=== PATIENT | male | born 1935 | race Caucasian/White ===

== ENCOUNTER 2017-05-07 14:50 | Inpatient (IN) | payer MEDICARE, OTHER ==
[~2017-05-07] VITALS: Ht 177.8 cm; Wt 80.3 kg
[~2017-05-07 14:50] MED LIST: ASPIR 8181 MG PO; ATORVASTATIN CA20 MG PO; CALCIUM 500+D1 EACH PO; CARVEDILOL12.5 MG PO; CENTRUM SILVER1 EAC3 PO; DIGOXIN250 MCG PO; ELIQUIS PO; LEVOTHYROXINE25 MCG PO; LISINOPRIL2.5 MG PO; VITAMIN D-32000 UNIT PO
[2017-05-07 16:33] LABS: BASOPHILS # (AUTO) 0.1 (0.0-0.1); BASOPHILS % 0.5 % (0.0-1.0); EOSINOPHILS # (AUTO) 0.4 (0.0-0.4); EOSINOPHILS % 4.1 % (0.0-6.0); HEMATOCRIT 41.8 % (38.2-49.6); HEMOGLOBIN 13.9 g/dL (14.0-18.0); LYMPHOCYTES # (AUTO) 3.4 (1.0-3.2); LYMPHOCYTES % 35.6 % (18.0-39.1); MEAN CORPUSCULAR HEMOGLOBIN 34.5 pg (28-32); MEAN CORPUSCULAR HGB CONC 33.3 g/dL (31-35); MEAN CORPUSCULAR VOLUME 103.7 fL (81-99); MONOCYTES # (AUTO) 1.3 (0.2-0.8); MONOCYTES % 13.2 % (4.4-11.3); NEUTROPHILS # (AUTO) 4.5 (2.1-6.9); NEUTROPHILS % 46.1 % (38.7-80.0); PLATELET COUNT 138 x10e3/uL (140-360); RED BLOOD COUNT 4.03 x10e6/uL (4.3-5.7); RED CELL DISTRIBUTION WIDTH 13.2 % (11.7-14.4)
[2017-05-07 16:35] LABS: BILIRUBIN,URINE NEGATIVE (NEGATIVE); COLOR,URINE YELLOW (YELLOW); KETONES,URINE NEGATIVE (NEGATIVE); LEUKOCYTE ESTERASE ,URINE NEGATIVE (NEGATIVE); NITRITE,URINE NEGATIVE (NEGATIVE); PROTEIN,URINE DIPSTICK NEGATIVE (NEGATIVE); URINE UROBILINOGEN 4 mg/dL (0.2 - 1)
[2017-05-07 16:37] LABS: CLARITY,URINE SL CLOUDY (CLEAR)
[2017-05-07 16:38] LABS: INR 1.73
[2017-05-07 16:39] LABS: PARTIAL THROMBOPLASTIN TIME 33.7 seconds (23.8-35.5)
[2017-05-07 16:45] LABS: ALANINE AMINOTRANSFERASE 29 IU/L (0-55); ALBUMIN 3.3 g/dL (3.5-5.0); ALBUMIN/GLOBULIN RATIO 0.9 (0.8-2.0); ALKALINE PHOSPHATASE 84 IU/L (40-150); ANION GAP 12.3 mmol/L (8-16); BLOOD UREA NITROGEN 20 mg/dL (7-26); BUN/CREATININE RATIO 19 (6-25); CALCIUM 9.5 mg/dL (8.4-10.2); CARBON DIOXIDE 30 mmol/L (22-29); CHLORIDE 99 mmol/L (98-107); CREATINE KINASE 44 IU/L (30-200); CREATININE, SERUM 1.07 mg/dL (0.72-1.25); EST GLOMERULAR FILTRATION RATE > 60 ML/MIN (60-); GLUCOSE 149 mg/dL (74-118); POTASSIUM 4.3 mmol/L (3.5-5.1); SODIUM 137 mmol/L (136-145)
[2017-05-07 16:49] LABS: EPITHELIAL CELLS,URINE RARE /LPF; RBC,URINE 0-5 /HPF (0-5); WBC,URINE (MAN) 0-5 /HPF (0-5)
[2017-05-07 16:53] LABS: MUCUS,URINE FEW (RARE)
--- NOTE | 2017-05-07 16:56 | Diagnostic Imaging Report ---
PROCEDURE: CHEST SINGLE (PORTABLE) COMPARISON: Patients [facility], DX, CHEST SINGLE (PORTABLE), 07/13/2014, 6:18. INDICATIONS: CONGESTION AND SHORTNESS OF BREATH FINDINGS: LUNGS: Diffuse hyperinflation suggestive of small airways disease. There is poor visualization of the lateral right diaphragm. Pulmonary vasculature is mildly prominent. PLEURA: Poor visualization of the right lateral costophrenic angle. Left lateral costophrenic angle is sharp. No pneumothorax. HEART \T\ MEDIASTINUM: Stable cardiomegaly. Multiple pacer/defibrillator wires are present. BONES \T\ SOFT TISSUES: No focal osseous lesion. Soft tissues are unremarkable. CONCLUSION: 1. Right basilar air space opacity could be due to pleural effusion and atelectasis or pneumonia. Recommend correlation with PA chest x-ray will clinically feasible. 2. Cardiomegaly and mild vascular congestion. Dictated by: Jose Alejandro Alvarez M.D. on 05/07/2017 at 16:57 Electronically approved by: Jose Alejandro Alvarez M.D. on 05/07/2017 at 16:57
[2017-05-07] MEDS ORDERED: ALBUTEROL/IPRATROPIUM 3 ML NEB NEB ONE (17:30)
[2017-05-07] MEDS ORDERED: FUROSEMIDE INJ 10 MG/ML 4 ML VIAL IV ONE (18:15)
--- OUTSIDE RECORDS SUMMARY | 2017-05-07 18:51 | XMS REPORT ---
Author Author [facility] Address Unknown Phone Unavailable Care Team Providers Care Instructional Support Specialist Name Role Phone SYLVIE GUALLPA Unavailable Unavailable Problems This patient has no known problems. Allergies, Adverse Reactions, Alerts This patient has no known allergies or adverse reactions. Medications This patient has no known medications. Results Test Description Test Time Test Comments Text Results Atomic Results Result Comments CHEST SINGLE (PORTABLE) [place] [address] Patient Name: MIGUEL STEPHEN JR MR #: [id number] : 1935 Age/Sex: 82/M Req #: [id number] Adm Physician: Ordered by: SYLVIE GUALLPA MD Report #: [id number] Location: ER Room/Bed: ___ Procedure: [id number] DX/CHEST SINGLE (PORTABLE) Exam Date: 05/07/17 Exam Time: 1630 REPORT STATUS: Signed PROCEDURE : CHEST SINGLE (PORTABLE) COMPARISON: [facility], DX, CHEST SINGLE (PORTABLE), 07/13/2014, 6:18. INDICATIONS: CONGESTION AND SHORTNESS OF BREATH FINDINGS: LUNGS: Diffuse hyperinflation suggestive of small airways disease. There is poor visualization of the lateral right diaphragm. Pulmonary vasculature is mildly prominent. PLEURA: Poor visualization of the right lateral costophrenic angle. Left lateral costophrenic angle is sharp. No pneumothorax. HEART T MEDIASTINUM: Stable cardiomegaly. Multiple pacer/defibrillator wires are present. BONES T SOFT TISSUES: No focal osseous lesion. Soft tissues are unremarkable. CONCLUSION: 1. Right basilar air space opacity could be due to pleural effusion and atelectasis or pneumonia. Recommend correlation with PA chest x-ray will clinically feasible. 2. Cardiomegaly and mild vascular congestion. Dictated by: Kristy Morley M.D. on 05/07/2017 at 16:57 Electronically approved by: Kristy Morley M.D. on 05/07/2017 at 16:57 Dictated By: KRISTY MORLEY MD 56 Transcribed By: ROSHAN on 05/07/171656 COPY TO: SYLVIE GUALLPA MD
[2017-05-07] MEDS ORDERED: KEPPRA500 MG PO (20:17)
[2017-05-08] VITALS (7 sets, daily range): BP systolic 98–143; BP diastolic 54–90
[2017-05-08 01:36] LABS: CREATINE KINASE MB 1.6 ng/mL (0-5.0)
[2017-05-08 06:31] LABS: BASOPHILS # (AUTO) 0.1 (0.0-0.1); BASOPHILS % 0.7 % (0.0-1.0); EOSINOPHILS # (AUTO) 0.5 (0.0-0.4); EOSINOPHILS % 4.6 % (0.0-6.0); HEMATOCRIT 38.9 % (38.2-49.6); HEMOGLOBIN 13.1 g/dL (14.0-18.0); LYMPHOCYTES # (AUTO) 3.8 (1.0-3.2); LYMPHOCYTES % 38.1 % (18.0-39.1); MEAN CORPUSCULAR HEMOGLOBIN 34.2 pg (28-32); MEAN CORPUSCULAR HGB CONC 33.7 g/dL (31-35); MEAN CORPUSCULAR VOLUME 101.6 fL (81-99); MONOCYTES # (AUTO) 1.1 (0.2-0.8); MONOCYTES % 11.3 % (4.4-11.3); NEUTROPHILS # (AUTO) 4.6 (2.1-6.9); NEUTROPHILS % 45.1 % (38.7-80.0); PLATELET COUNT 131 x10e3/uL (140-360); RED BLOOD COUNT 3.83 x10e6/uL (4.3-5.7); RED CELL DISTRIBUTION WIDTH 13.2 % (11.7-14.4)
[2017-05-08 07:00] LABS: CREATINE KINASE MB 1.6 ng/mL (0-5.0)
[2017-05-08 07:33] LABS: ANION GAP 12.9 mmol/L (8-16); BLOOD UREA NITROGEN 20 mg/dL (7-26); BUN/CREATININE RATIO 19 (6-25); CARBON DIOXIDE 26 mmol/L (22-29); CHLORIDE 99 mmol/L (98-107); CREATININE, SERUM 1.04 mg/dL (0.72-1.25); EST GLOMERULAR FILTRATION RATE > 60 ML/MIN (60-); GLUCOSE 110 mg/dL (74-118); POTASSIUM 3.9 mmol/L (3.5-5.1); SODIUM 134 mmol/L (136-145)
[2017-05-08] MEDS: CARVEDILOL 3.125 MG TAB PO SCH ×2 (09:00→17:44)
[2017-05-08] MEDS: LISINOPRIL 2.5 MG TAB PO SCH (09:00)
[2017-05-08] MEDS: FUROSEMIDE INJ 10 MG/ML 4 ML VIAL IV SCH ×2 (09:00→17:44)
[2017-05-08] MEDS: SPIRONOLACTONE 25 MG TAB PO SCH (09:00)
--- NOTE | 2017-05-08 12:36 | Diagnostic Imaging Report ---
PROCEDURE: Frontal and lateral views of the chest. COMPARISON: Portable chest 05/07/2017. INDICATIONS: CONGESTIVE HEART FAILURE, PLEURAL EFFUSION FINDINGS: Lines/tubes: Left chest cardiac device with leads projecting over the expected regions of the right atrium and ventricle. Lungs: The lungs are well inflated and clear. There is no evidence of pneumonia or pulmonary edema. Pleura: There is no pleural effusion or pneumothorax. Heart and mediastinum: The heart and the mediastinum are normal. Bones: No acute bony abnormality. Degenerative changes in the thoracic spine. Median sternotomy wires. IMPRESSION: No acute radiographic abnormality. Dictated by: Everton De Souza M.D. on 05/08/2017 at 12:37 Electronically approved by: Everton De Souza M.D. on 05/08/2017 at 12:37
--- NOTE | 2017-05-08 15:04 | Consultation ---
DATE OF CONSULTATION: May 08, 2017 CARDIOLOGY CONSULTATION Thank you so much for asking me to see this nice man in consultation. Mr. Park is a pleasant but complex 82-year-old man who had presented to the emergency room on the with the complaint of shortness of breath. HISTORY OF PRESENT ILLNESS: He and his tell me that he had noted he thinks maybe an estimate of 10-pound weight gain associated with some difficulty lying down to sleep recently. They are vague about just how long they think this has been. They note that they are not taking any furosemide on a daily basis and think that their previous cruise coordinator had advised that they do not need to take Lasix unless it was "needed." He denies any recent chest pain, palpitations or syncope. PAST MEDICAL HISTORY: Long and complex with previous knowledge of dilated cardiomyopathy. He had coronary artery bypass graft surgery by Dr. David Atkins on February 10, 1998, after cardiac cath by Dr. Killian when he was [address] Atkins placed vein grafts to the right coronary artery, the OM, ramus, and ALFRED to the LAD. EF estimated that day was 30% with a totally occluded right coronary, totally occluded LAD, totally occluded ramus. He had stents of his abdominal aorta November 2011. 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 He had a radical prostatectomy in 2005. He has also had stenting extending into his iliacs. He had defibrillator placement at the [facility] in 2005, replaced in 2011, evidently with some lead replacements in 2014. He has also diagnoses of chronic atrial fibrillation and seizure disorder. He has a urologic device for a bladder sphincter. His current home medications include atorvastatin 80 mg daily, carvedilol 12.5 mg twice daily, digoxin 0.25 mg daily, lisinopril 2.5 mg daily, aspirin 81 mg daily, vitamin D3, Eliquis 2.5 mg twice a day, levothyroxine 25 mcg daily. He apparently has Lasix 20 mg at home but does not use it on a regular basis. PERSONAL AND SOCIAL HISTORY: He has smoked in the past. Lives with his . PHYSICAL EXAMINATION GENERAL: At this time shows a pleasant, alert white man who is conversant, oriented. VITAL SIGNS: Blood pressure 125/90, pulse 70 and paced. HEAD, EYES, EARS, NOSE AND THROAT: Shows poor dentition. NECK: Shows healed dissection. THORAX: There is healed midline sternotomy and left subclavian defibrillator. Heart sounds S1 and S2 are equal, and no distinct murmurs are audible. LUNGS: Relatively clear. ABDOMEN: Protuberant. Normal bowel sounds. Nontender. EXTREMITIES: Have 3+ pretibial edema bilaterally. CURRENT LABORATORY STUDIES: Show glucoses of 141 and 110. Hemoglobin 13.3. Prothrombin time 19.0 seconds, INR 1.73. His bilirubin is 1.9. BNP is 530. Troponins are normal x3. Chest x-ray suggests a small right pleural effusion. Echocardiogram performed today shows a dilated left ventricle with ejection fraction 20% to 25%. There is mild aortic insufficiency, mild to moderate mitral regurgitation, mild tricuspid regurgitation, right ventricular systolic pressure normal. ASSESSMENTS 1. Congestive heart failure with volume overload. 2. Ischemic cardiomyopathy with previous coronary artery bypass graft surgery. 3. Chronic atrial fibrillation by previous defibrillator interrogation. 4. Hyperglycemia, not currently on any hypoglycemic agent. 5. Probable passive congestion of the liver with elevated bilirubin. PLAN: Agree with diuresis and continuing his home medications. I think he will need Lasix on a regular basis in view of his low ejection fraction. Will interrogate defibrillator today as it has not been interrogated in over 3 months, possibly longer. Will follow him closely with you. His prognosis is guarded, and this is known by the patient and family both. Thank you for asking me to see him in consultation. Job#: [id number] EV cc:MICHAEL SUN M.D.
[2017-05-08 16:13] LABS: ANION GAP 11.9 mmol/L (8-16); BLOOD UREA NITROGEN 21 mg/dL (7-26); BUN/CREATININE RATIO 19 (6-25); CALCIUM 9.2 mg/dL (8.4-10.2); CARBON DIOXIDE 31 mmol/L (22-29); CHLORIDE 96 mmol/L (98-107); CHOL/HDL RATIO 4.4 (3.9-4.7); CHOLESTEROL 127 MD/DL (0-199); CREATININE, SERUM 1.09 mg/dL (0.72-1.25); EST GLOMERULAR FILTRATION RATE > 60 ML/MIN (60-); GLUCOSE 119 mg/dL (74-118); HDL CHOLESTEROL 29 MG/DL (40-60); LDL CHOLESTEROL 81 MG/DL (60-130); POTASSIUM 3.9 mmol/L (3.5-5.1); SODIUM 135 mmol/L (136-145); TRIGLYCERIDES 85 MG/DL (0-149)
[2017-05-08 16:23] LABS: DIGOXIN 0.47 ng/mL (0.8-2.0)
[2017-05-08] MEDS: APIXAB 2.5 MG TABLET PO SCH (17:44)
[2017-05-08] MEDS ORDERED: ATORVASTATIN 20 MG TAB PO SCH (21:00)
[2017-05-08] MEDS: ATORVASTATIN 40 MG TAB PO SCH (21:57)
[2017-05-09] VITALS (8 sets, daily range): BP systolic 10–124; BP diastolic 55–83
[2017-05-09] MEDS: LEVOTHYROXINE SODIUM 25 MCG TABLET PO SCH (06:12)
[2017-05-09 06:55] LABS: BASOPHILS # (AUTO) 0.1 (0.0-0.1); BASOPHILS % 0.5 % (0.0-1.0); EOSINOPHILS # (AUTO) 0.5 (0.0-0.4); EOSINOPHILS % 4.5 % (0.0-6.0); HEMATOCRIT 42.1 % (38.2-49.6); HEMOGLOBIN 13.9 g/dL (14.0-18.0); LYMPHOCYTES # (AUTO) 3.7 (1.0-3.2); LYMPHOCYTES % 35.1 % (18.0-39.1); MEAN CORPUSCULAR HEMOGLOBIN 34.2 pg (28-32); MEAN CORPUSCULAR VOLUME 103.4 fL (81-99); MONOCYTES # (AUTO) 1.3 (0.2-0.8); MONOCYTES % 12.3 % (4.4-11.3); NEUTROPHILS % 47.2 % (38.7-80.0); PLATELET COUNT 131 x10e3/uL (140-360); RED BLOOD COUNT 4.07 x10e6/uL (4.3-5.7); RED CELL DISTRIBUTION WIDTH 13.1 % (11.7-14.4)
[2017-05-09 07:14] LABS: ANION GAP 11.9 mmol/L (8-16); BLOOD UREA NITROGEN 21 mg/dL (7-26); BUN/CREATININE RATIO 18 (6-25); CALCIUM 9.2 mg/dL (8.4-10.2); CARBON DIOXIDE 33 mmol/L (22-29); CHLORIDE 97 mmol/L (98-107); CREATININE, SERUM 1.14 mg/dL (0.72-1.25); EST GLOMERULAR FILTRATION RATE > 60 ML/MIN (60-); GLUCOSE 98 mg/dL (74-118); POTASSIUM 3.9 mmol/L (3.5-5.1); SODIUM 138 mmol/L (136-145)
[2017-05-09] MEDS: CARVEDILOL 3.125 MG TAB PO SCH ×2 (10:02→16:42)
[2017-05-09] MEDS: SPIRONOLACTONE 25 MG TAB PO SCH (10:02)
[2017-05-09] MEDS: FUROSEMIDE INJ 10 MG/ML 4 ML VIAL IV SCH ×2 (10:02→16:42)
[2017-05-09] MEDS: LISINOPRIL 2.5 MG TAB PO SCH (10:02)
[2017-05-09] MEDS: APIXAB 2.5 MG TABLET PO SCH ×2 (10:02→16:42)
[2017-05-09] MEDS ORDERED: REGADENOSON 0.4 MG/5 ML SYR IV ONE (17:00)
[2017-05-09] MEDS: ATORVASTATIN 40 MG TAB PO SCH (20:53)
[2017-05-10] VITALS (7 sets, daily range): BP systolic 98–122; BP diastolic 61–84
[2017-05-10] MEDS: LEVOTHYROXINE SODIUM 25 MCG TABLET PO SCH (06:12)
[2017-05-10 06:48] LABS: ANION GAP 13.7 mmol/L (8-16); BLOOD UREA NITROGEN 22 mg/dL (7-26); BUN/CREATININE RATIO 22 (6-25); CARBON DIOXIDE 29 mmol/L (22-29); CHLORIDE 101 mmol/L (98-107); CREATININE, SERUM 0.99 mg/dL (0.72-1.25); EST GLOMERULAR FILTRATION RATE > 60 ML/MIN (60-); GLUCOSE 100 mg/dL (74-118); POTASSIUM 3.7 mmol/L (3.5-5.1); SODIUM 140 mmol/L (136-145)
[2017-05-10] MEDS: SPIRONOLACTONE 25 MG TAB PO SCH (08:46)
[2017-05-10] MEDS: CARVEDILOL 3.125 MG TAB PO SCH ×2 (08:46→20:29)
[2017-05-10] MEDS: APIXAB 2.5 MG TABLET PO SCH ×2 (08:46→18:00)
[2017-05-10] MEDS: LISINOPRIL 2.5 MG TAB PO SCH (08:47)
[2017-05-10] MEDS: FUROSEMIDE INJ 10 MG/ML 4 ML VIAL IV SCH ×3 (08:48→18:30)
[2017-05-10] MEDS: ATORVASTATIN 40 MG TAB PO SCH (20:30)
[2017-05-11] VITALS: BP 101/57
[2017-05-11 00:26] VITALS: BP 101/57
[2017-05-11 01:37] VITALS: BP 101/57
[2017-05-11 04:00] VITALS: BP 127/72
[2017-05-11] MEDS: LEVOTHYROXINE SODIUM 25 MCG TABLET PO SCH (05:35)
[2017-05-11] MEDS: FUROSEMIDE INJ 10 MG/ML 4 ML VIAL IV SCH (05:35)
[2017-05-11 08:06] VITALS: BP 105/68
[2017-05-11] MEDS: SPIRONOLACTONE 25 MG TAB PO SCH (08:41)
[2017-05-11] MEDS: APIXAB 2.5 MG TABLET PO SCH (08:41)
[2017-05-11] MEDS: CARVEDILOL 3.125 MG TAB PO SCH (08:41)
[2017-05-11] MEDS ORDERED: LASIX40 MG PO (11:12)
[2017-05-11] MEDS ORDERED: ALDACTONE25 MG PO (11:12)
[2017-05-11 12:45] VITALS: BP 105/69
--- NOTE | 2017-05-11 13:25 | Cardiology Report ---
DATE OF STUDY: May 10, 2017 LEXISCAN MYOVIEW This is a 2-day study performed on May 09 and 2017. On May 09, the patient had resting perfusion study images taken after an injection of 11 millicuries of technetium 99m Myoview. On the morning of the , the patient was given Lexiscan 0.4 mg intravenously and shortly afterwards 33 millicuries of technetium 99m Myoview. Perfusion images were taken by rotational tomography. Comparison of resting and Lexiscan stress images shows a large inferior fixed defect suggesting scar. There is a small anteroapical defect suggesting scar. There is no distinct reversible defect to suggest any ischemia. Additionally, gated wall-motion images were obtained. There are global hypokinesis and inferior akinesis. Calculated ejection fraction is 27%. FINAL IMPRESSION 1. Abnormal Lexiscan Myoview for perfusion. 2. Large inferior scar. 3. Small anteroapical scar. 4. No distinct ischemia. 5. Abnormal left ventricular function with global hypokinesis and inferior akinesis. Calculated ejection fraction of 27%. Dilated ventricle as well. Job#: [id number]
--- NOTE | 2017-05-11 15:38 | Discharge Summary ---
DISCHARGE DIAGNOSES: 1. Exacerbation of congestive heart failure, now stable. 2. Ischemic dilated cardiomyopathy. 3. Chronic atrial fibrillation. HISTORY OF PRESENT ILLNESS: Mr. Park is an 82-year-old gentleman, patient of Dr. De Los Santos, who has extensive past medical history significant for coronary artery disease, congestive heart failure. His ejection fraction is about 20% to 25%, chronic atrial fibrillation, status post coronary artery bypass graft, status post AICD, history of prostate cancer. He is status post artificial sphincter. The patient came to the emergency department with a history of increasing dyspnea over the last week and also peripheral edema . The patient apparently was not on any diuretic therapy and he had been recently started on Lasix. Since there was no significant improvement, he presented to the emergency department where he was evaluated and found to have significant fluid overload. On chest x-ray, there was cardiomegaly, mild vascular congestion and right basilar pleural effusion. He was admitted to the hospital. A consultation was requested with Dr. Cheek, cardiology. He was started in a combination of furosemide and spironolactone. A 2D echocardiogram was requested. The echocardiogram was significant for ejection fraction of about 20% to 25% with mild concentric hypertrophy and moderate dilatation of the left ventricle. The left atrium was also markedly dilated. He had a Cardiolite stress test. The results are pending at the time of the dictation. With the above-mentioned management, the patient has improved markedly and he is back to his baseline. He is being discharged home in stable condition. Furosemide 40 mg daily and spironolactone 25 mg daily have been added to therapy. He is to continue his usual home medications. He is to follow up with cardiology and his primary care physician, Dr. De Los Santos. PHYLICIA ORTA MD Job#: [id number]
== END 2017-05-11 12:57 | disposition home or self-care (01) | DRG 293 ==
LOC: ER 14:50 → ERHOLD 18:47 → IMCU 23:33 → OBSVTOIN 05-08 11:47
PROVIDERS: ADMIT Internal Medicine; ATTEND Internal Medicine
DX: I11.0 Hypertensive heart disease with heart failure (principal); I48.2 Chronic atrial fibrillation; I25.5 Ischemic cardiomyopathy; G40.909 Epilepsy, unspecified, not intractable, without status epilepticus; I73.9 Peripheral vascular disease, unspecified; K76.1 Chronic passive congestion of liver; I25.10 Atherosclerotic heart disease of native coronary artery without angina pectoris; F17.210 Nicotine dependence, cigarettes, uncomplicated; G47.30 Sleep apnea, unspecified; I50.23 Acute on chronic systolic (congestive) heart failure; Z95.810 Presence of automatic (implantable) cardiac defibrillator; Z95.820 Peripheral vascular angioplasty status with implants and grafts; R73.9 Hyperglycemia, unspecified; Z79.01 Long term (current) use of anticoagulants; Z95.1 Presence of aortocoronary bypass graft
CPT/HCPCS: 36415; 71045; 71046; 78452; 80048; 80053; 80061; 80162; 81001; 82550; 82553; 83880; 84443; 84484; 85025; 85610; 85730; 93005; 93017; 93306; 99284; A9502; G0378; J1940

== ENCOUNTER 2017-10-14 12:05 | Emergency (ER) | payer MEDICARE, OTHER ==
[~2017-10-14] VITALS: Ht 177.8 cm; Wt 80.3 kg
[~2017-10-14 12:05] MED LIST changes: +ALDACTONE25 MG PO; +KEPPRA500 MG PO; +LASIX40 MG PO
[2017-10-14] MEDS ORDERED: SODIUM CHLORIDE 0.9% 1000ML 1,000 ML IV STA (12:54)
[2017-10-14 13:26] LABS: BASOPHILS # (AUTO) 0.1 (0.0-0.1); BASOPHILS % 0.4 % (0.0-1.0); EOSINOPHILS # (AUTO) 0.4 (0.0-0.4); EOSINOPHILS % 2.3 % (0.0-6.0); HEMATOCRIT 35.7 % (38.2-49.6); HEMOGLOBIN 12.2 g/dL (14.0-18.0); LYMPHOCYTES # (AUTO) 5.6 (1.0-3.2); LYMPHOCYTES % 31.6 % (18.0-39.1); MEAN CORPUSCULAR HEMOGLOBIN 35.3 pg (28-32); MEAN CORPUSCULAR HGB CONC 34.2 g/dL (31-35); MEAN CORPUSCULAR VOLUME 103.2 fL (81-99); MONOCYTES # (AUTO) 1.3 (0.2-0.8); MONOCYTES % 7.3 % (4.4-11.3); NEUTROPHILS # (AUTO) 10.2 (2.1-6.9); NEUTROPHILS % 57.9 % (38.7-80.0); PLATELET COUNT 167 x10e3/uL (140-360); RED BLOOD COUNT 3.46 x10e6/uL (4.3-5.7); RED CELL DISTRIBUTION WIDTH 12.4 % (11.7-14.4)
[2017-10-14 13:40] LABS: INR 1.74; PROTHROMBIN TIME 19.1 seconds (11.9-14.5)
[2017-10-14 13:41] LABS: PARTIAL THROMBOPLASTIN TIME 30.8 seconds (23.8-35.5)
[2017-10-14] MEDS ORDERED: LIDOCAINE 1% W/EPINEPHRINE 20 ML VIAL INJ NR (13:45)
[2017-10-14 13:48] LABS: ALBUMIN 3.4 g/dL (3.5-5.0); ANION GAP 14.6 mmol/L (8-16); CALCIUM 10.4 mg/dL (8.4-10.2); CREATININE, SERUM 1.39 mg/dL (0.72-1.25); POTASSIUM 5.6 mmol/L (3.5-5.1)
[2017-10-14 13:54] LABS: CREATINE KINASE MB 0.8 ng/mL (0-5.0)
[2017-10-14] MEDS ORDERED: SILVER NITRATE SWABS TOP ONE (14:15)
[2017-10-14 14:44] LABS: BAND NEUTROPHILS % (MANUAL) 2 %; EOSINOPHILS % (MANUAL) 1 % (0-7); LYMPHOCYTES % (MANUAL) 43 % (19-48); MONOCYTES % (MANUAL) 4 % (3.4-9.0); NEUTROPHILS % (MANUAL) 50 % (40-74); PLATELET ESTIMATE ADEQUATE; PLATELET MORPHOLOGY COMMENT NORMAL
[2017-10-14 15:04] LABS: BASOPHILS # (AUTO) 0.1 (0.0-0.1); BASOPHILS % 0.3 % (0.0-1.0); EOSINOPHILS # (AUTO) 0.4 (0.0-0.4); EOSINOPHILS % 2.1 % (0.0-6.0); HEMATOCRIT 33.9 % (38.2-49.6); HEMOGLOBIN 11.6 g/dL (14.0-18.0); LYMPHOCYTES % 23.9 % (18.0-39.1); MEAN CORPUSCULAR HEMOGLOBIN 35.7 pg (28-32); MEAN CORPUSCULAR HGB CONC 34.2 g/dL (31-35); MEAN CORPUSCULAR VOLUME 104.3 fL (81-99); MONOCYTES # (AUTO) 1.5 (0.2-0.8); MONOCYTES % 8.7 % (4.4-11.3); NEUTROPHILS # (AUTO) 10.8 (2.1-6.9); NEUTROPHILS % 64.2 % (38.7-80.0); PLATELET COUNT 145 x10e3/uL (140-360); RED BLOOD COUNT 3.25 x10e6/uL (4.3-5.7); RED CELL DISTRIBUTION WIDTH 12.3 % (11.7-14.4)
[2017-10-14 15:21] LABS: ALANINE AMINOTRANSFERASE 15 IU/L (0-55); ALBUMIN 3.3 g/dL (3.5-5.0); ALKALINE PHOSPHATASE 72 IU/L (40-150); ANION GAP 14.4 mmol/L (8-16); BLOOD UREA NITROGEN 21 mg/dL (7-26); BUN/CREATININE RATIO 18 (6-25); CALCIUM 9.8 mg/dL (8.4-10.2); CARBON DIOXIDE 26 mmol/L (22-29); CHLORIDE 100 mmol/L (98-107); CREATININE, SERUM 1.14 mg/dL (0.72-1.25); EST GLOMERULAR FILTRATION RATE > 60 ML/MIN (60-); GLUCOSE 171 mg/dL (74-118); POTASSIUM 5.4 mmol/L (3.5-5.1); SODIUM 135 mmol/L (136-145)
[2017-10-14] MEDS ORDERED: SOD POLYSTYRENE SULFONATE SUSP 15 GM/60 ML BTL PO NR (16:00)
[2017-10-14 16:50] VITALS: BP 112/79
[2017-10-15] MEDS ORDERED: BACITRACIN/POLYMYXIN 30 GM OINT TP SCH (09:00)
== END 2017-10-14 17:20 | disposition home or self-care (01) ==
LOC: ER 12:05
DX: L76.22 Postprocedural hemorrhage of skin and subcutaneous tissue following other procedure (principal); D72.829 Elevated white blood cell count, unspecified; E87.5 Hyperkalemia; I10 Essential (primary) hypertension; I48.91 Unspecified atrial fibrillation; Z95.0 Presence of cardiac pacemaker; Z85.828 Personal history of other malignant neoplasm of skin
CPT/HCPCS: 17250; 36415; 80053; 82550; 82553; 83735; 83880; 84484; 85025; 85610; 85730; 86850; 86900; 93005; 99284; J7030

== ENCOUNTER 2019-04-19 21:24 | Inpatient (IN) | payer MEDICARE, OTHER ==
[~2019-04-19] VITALS: Ht 175.3 cm; Wt 65.8 kg
[2019-04-19 22:15] LABS: BASOPHILS % 0.2 % (0.0-1.0); EOSINOPHILS % 0.1 % (0.0-6.0); HEMATOCRIT 38.1 % (38.2-49.6); HEMOGLOBIN 12.4 g/dL (14.0-18.0); LYMPHOCYTES # (AUTO) 2.9 (1.0-3.2); LYMPHOCYTES % 31.4 % (18.0-39.1); MEAN CORPUSCULAR HEMOGLOBIN 33.7 pg (28-32); MEAN CORPUSCULAR HGB CONC 32.5 g/dL (31-35); MEAN CORPUSCULAR VOLUME 103.5 fL (81-99); NEUTROPHILS # (AUTO) 5.2 (2.1-6.9); NEUTROPHILS % 56.8 % (38.7-80.0); PLATELET COUNT 104 x10e3/uL (140-360); RED BLOOD COUNT 3.68 x10e6/uL (4.3-5.7); RED CELL DISTRIBUTION WIDTH 18.7 % (11.7-14.4)
[2019-04-19] MEDS ORDERED: CEFEPIME HCL 1 GM VIAL IV ONE (22:15)
[2019-04-19 22:31] LABS: ALBUMIN 3.4 g/dL (3.5-5.0); ANION GAP 21.7 mmol/L (8-16); CALCIUM 10.1 mg/dL (8.4-10.2); CREATININE, SERUM 2.69 mg/dL (0.72-1.25); POTASSIUM 5.7 mmol/L (3.5-5.1)
[2019-04-19] MEDS ORDERED: DEXTROSE 50% SYRINGE 50 ML IV STA (22:49)
[2019-04-19] MEDS ORDERED: SODIUM CHLORIDE 0.9% 1000ML 2,000 ML ONE (22:49)
[2019-04-19] MEDS ORDERED: SODIUM CHLORIDE 0.9% 1000ML 1,000 ML IV STA ×2 (22:56)
[2019-04-19] MEDS ORDERED: CALCIUM GLUCONATE 10% INJ 4.65 MEQ in SODIUM CHLORIDE 0.9% 50ML 50 ML IV ONE (23:00)
[2019-04-19] MEDS ORDERED: INSULIN REGULAR, HUMAN 100 UNIT/1 ML 3ML VIAL IV ONE (23:00)
[2019-04-19] MEDS ORDERED: CALCIUM GLUCONATE 10% INJ 0.465 MEQ/ML VIAL ONE (23:01)
[2019-04-19] MEDS ORDERED: INSULIN REGULAR, HUMAN 100 UNIT/1 ML 3ML VIAL ONE (23:02)
[2019-04-19] MEDS ORDERED: DEXTROSE 50% SYRINGE 50 ML IV ONE (23:02)
[2019-04-19] MEDS ORDERED: SODIUM CHLORIDE 0.9% 50ML 50 ML ONE (23:02)
[2019-04-19] MEDS ORDERED: CEFEPIME 1GM/NS 0.9% 50 ML 50 ML IV ONE (23:02)
[2019-04-20] VITALS (22 sets, daily range): BP systolic 70–94; BP diastolic 30–69
--- NOTE | 2019-04-20 00:20 | Diagnostic Imaging Report ---
Examination: Single AP view of the chest. COMPARISON: None. INDICATION: Dysuria, weakness DISCUSSION: Lungs are well-inflated. Bibasilar airspace opacities, likely atelectasis. No sizable pleural effusion or pneumothorax. Moderate enlargement of the cardiac silhouette with a left subclavian approach implantable cardiac device in position. Multiple median sternotomy wires. Tortuous thoracic aorta with atherosclerotic calcification. Prominence of the central pulmonary vasculature. No acute osseous abnormality. IMPRESSION: Cardiomegaly with pulmonary venous congestion. Signed by: Dr. David Glavan M.D. on 04/20/2019 12:17 AM
[2019-04-20] MEDS ORDERED: SOD POLYSTYRENE SULFONATE SUSP 15 GM/60 ML BTL PO ONE (00:45)
[2019-04-20 01:03] LABS: INR 4.73; PROTHROMBIN TIME 48.3 seconds (11.9-14.5)
[2019-04-20 01:04] LABS: PARTIAL THROMBOPLASTIN TIME 45.1 seconds (23.8-35.5)
--- NOTE | 2019-04-20 02:24 | Diagnostic Imaging Report ---
EXAM: Renal Ultrasound INDICATION: ^Urinary retention ^[id number] ^0134 COMPARISON: None TECHNIQUE: Transverse and longitudinal images of the kidneys and bladder were obtained. FINDINGS: Right Kidney: Size: 11 cm Echogenicity: Normal Parenchymal thickness: Normal Collecting system: No hydronephrosis Stones: None Cyst/Mass: None Left Kidney: Size: 8.8 cm Echogenicity: Normal Parenchymal thickness: Normal Collecting system: No hydronephrosis Stones: None Cyst/Mass: None Bladder: Incompletely distended. The ureteral jets are not identified. An anechoic round structure with posterior acoustic enhancement is identified anterior and lateral to the bladder, which may represent a balloon reservoir for a penile augmentation device. Correlate clinically. Small volume ascites and gallbladder collapse with wall thickening is incidentally noted. Small bilateral pleural effusions. IMPRESSION: Unremarkable sonographic appearance of the kidneys. Small volume ascites. Gallbladder wall thickening is nonspecific though likely attributable to collapse and underlying liver disease or hypoproteinemia. Suspected balloon reservoir for a prosthetic device seen in the low abdomen. Correlate clinically. Signed by: Dr. David Galvan M.D. on 04/20/2019 2:22 AM
--- NOTE | 2019-04-20 03:10 | NUR ---
Pt received from ER via stretcher to ICU room 191. Pt on 2L n/c with no distress noted. Pt reports no pain or discomfort at this time. Pt is present at the bedside.
[2019-04-20] MEDS ORDERED: SODIUM CHLORIDE 0.9% 500ML 500 ML ONE (03:47)
--- NOTE | 2019-04-20 03:57 | Consultation ---
DATE OF CONSULTATION: 04/20/2019 Pulmonary Critical Care Consultation CHIEF COMPLAINT: Difficulty urinating. HISTORY OF PRESENT ILLNESS: The patient is an 84-year-old man. He has a history of cardiomyopathy and has an ejection fraction of 20% to 25%. He required admission to [facility] in [address] [facility] twice in 2019 to have "fluid removed." He follows with a cook starch through the [facility] as an outpatient. The patient also has a history of prior prostate cancer. After completion of his treatment, he had a urinary sphincter placed. He denies any medical renal disease. He was doing well until yesterday. He noticed difficulty urinating and states he has not urinated well over the past 24 hours. He does not complain of fever. He has no nausea or vomiting. He has no chest pain. PAST SURGICAL HISTORY: 1. Status post replacement of urinary sphincter after treatment of prostate cancer. 2. Status post cardiac stent placement. PAST MEDICAL HISTORY: 1. History of cardiomyopathy and coronary artery disease. 2. History of prostate cancer. 3. History of skin cancer. 4. History of thyroid disease. SOCIAL HISTORY: The patient has no recent smoking history or drinking history. He lives with his . ALLERGIES: NO KNOWN DRUG ALLERGIES. REVIEW OF SYSTEMS: He has no fever. He has no headache. He has no neck pain. He is not having any sore throat. He has no chest pain. He has no difficulty breathing. He denies any leg pain. He complains of difficulty urinating. PHYSICAL EXAMINATION: VITAL SIGNS: The patient is afebrile, blood pressure is 82/62, pulse is 71, and oxygen saturation is 100% on 2 L. HEENT: Shows no facial swelling or erythema. The oropharynx is normal. LYMPHATIC: Shows no submandibular, cervical, or supraclavicular adenopathy. CARDIAC: Reveals regular rate and rhythm with normal S1 and S2. LUNGS: Auscultation of lungs reveals clear breath sounds bilaterally. There is no wheezing. ABDOMEN: Soft, nontender. There is no rebound or guarding. EXTREMITIES: Show no leg edema or calf tenderness. LABORATORY DATA: BUN to creatinine ratio is 49 to 2.69 with a potassium of 5.7 and a sodium of 135. The lactic acid is 5.4 and the glucose is 165. The troponin I is elevated at 6.27. White blood cell count is 9.1, hemoglobin is 12.4, and platelet count is 104. RADIOGRAPHIC DATA: Chest x-ray shows cardiomegaly with some venous congestion. IMPRESSION: 1. Acute urinary retention. 2. Acute renal failure. 3. Hyperkalemia. 4. Nontransmural myocardial infarction. 5. Cardiomyopathy. 6. [id number] systolic congestive heart failure. PLAN: 1. The patient has received treatment for hyperkalemia in the emergency department including insulin, D50, IV fluids, and Kayexalate. 2. The patient received a liter and half of fluid and was cultured in the ER in concordance with the sepsis protocol. 3. I spoke to Urology over the phone and we have applied pressure to the release button in the scrotum to deflate the urethral sphincter. 4. Ultrasound of the kidneys and bladder to look for evidence of urinary retention. 5. Nephrology consultation. 6. Monitor the patient in intensive care unit. Tee Toledo MD Alicja/GULSHAN /[id number]
[2019-04-20 04:18] LABS: ANION GAP 17.1 mmol/L (8-16); CALCIUM 9.1 mg/dL (8.4-10.2); CREATININE, SERUM 2.51 mg/dL (0.72-1.25); POTASSIUM 5.1 mmol/L (3.5-5.1)
[2019-04-20 04:30] LABS: CREATINE KINASE MB 23.2 ng/mL (0-5.0)
[2019-04-20] MEDS ORDERED: NOREPINEPHRINE 8 MG/D5W 250 ML 250 ML ONE (04:42)
[2019-04-20] MEDS ORDERED: NOREPINEPHRINE INJ 4MG/4ML 8 MG in DEXTROSE 5% 250ML 250 ML IV SCH (04:45)
--- NOTE | 2019-04-20 04:48 | NUR ---
Dr. Anushka Toledo notified of Renal US results, blood lab results, and current BP and temperature. New order received to start Levophed through peripheral IV and titrate to a rate no greater than 5mcg/min through peripheral IV site. Dr. Toledo stated he will be here at 0800 to insert a central venous access line and to obtain consent before he gets here. He also asked that we notify Dr. Danielson again that the pt has not urinated d/t AMS Sphincter 800 Urinary Implant.
[2019-04-20] MEDS: NOREPINEPHRINE 8 MG/D5W 250 ML 250 ML IV SCH ×2 (04:52→11:51)
[2019-04-20] MEDS: LEVOTHYROXINE SODIUM 25 MCG TABLET PO SCH (05:50)
--- NOTE | 2019-04-20 06:05 | NUR ---
Paged Dr. Danielson to report urine retention. Currently awaiting his return call.
--- NOTE | 2019-04-20 06:32 | NUR ---
Dr. Danielson return called and stated he is going to come in and deactivate the AMS Sphincter 800 Implant device.
--- NOTE | 2019-04-20 07:00 | NUR ---
Bedside report given to Corbin Verma RN.
[2019-04-20 07:17] LABS: BASOPHILS % 0.2 % (0.0-1.0); EOSINOPHILS # (AUTO) 0.1 (0.0-0.4); EOSINOPHILS % 0.6 % (0.0-6.0); HEMOGLOBIN 11.5 g/dL (14.0-18.0); LYMPHOCYTES # (AUTO) 2.5 (1.0-3.2); LYMPHOCYTES % 27.9 % (18.0-39.1); MEAN CORPUSCULAR HEMOGLOBIN 34.3 pg (28-32); MEAN CORPUSCULAR HGB CONC 32.9 g/dL (31-35); MEAN CORPUSCULAR VOLUME 104.5 fL (81-99); MONOCYTES # (AUTO) 1.3 (0.2-0.8); NEUTROPHILS # (AUTO) 5.1 (2.1-6.9); NEUTROPHILS % 56.7 % (38.7-80.0); PLATELET COUNT 94 x10e3/uL (140-360); RED BLOOD COUNT 3.35 x10e6/uL (4.3-5.7); RED CELL DISTRIBUTION WIDTH 18.6 % (11.7-14.4)
[2019-04-20 07:37] LABS: ANION GAP 17.4 mmol/L (8-16); CALCIUM 9.2 mg/dL (8.4-10.2); CREATININE, SERUM 2.55 mg/dL (0.72-1.25); POTASSIUM 5.4 mmol/L (3.5-5.1)
[2019-04-20 07:57] LABS: CREATINE KINASE MB 24.7 ng/mL (0-5.0)
[2019-04-20 08:21] LABS: INR 3.96
[2019-04-20 08:27] LABS: PROTHROMBIN TIME 41.9 seconds (11.9-14.5)
[2019-04-20] MEDS: CALCIUM CARBONATE 500 MG CHEWABLE TABS PO SCH (09:00)
[2019-04-20] MEDS ORDERED: ASPIRIN 81 MG CHEW TAB PO SCH (09:00)
[2019-04-20 12:00] LABS: CLARITY,URINE SL CLOUDY (CLEAR); COLOR,URINE ORANGE (YELLOW)
[2019-04-20 12:08] LABS: LEUKOCYTE ESTERASE ,URINE NEGATIVE (NEGATIVE); NITRITE,URINE NEGATIVE (NEGATIVE); PROTEIN,URINE DIPSTICK 1+ (NEGATIVE)
[2019-04-20 12:09] LABS: BILIRUBIN,URINE MODERATE (NEGATIVE); KETONES,URINE NEGATIVE (NEGATIVE); URINE UROBILINOGEN 0.2 mg/dL (0.2 - 1)
[2019-04-20 12:12] LABS: BACTERIA,URINE FEW /HPF; EPITHELIAL CELLS,URINE FEW /LPF
--- NOTE | 2019-04-20 12:59 | Progress Note ---
DATE: 04/20/2019 Pulmonary Critical Care Progress Note SUBJECTIVE: The patient had to be started on Levophed early this morning for low blood pressure. He was also found to have a coagulopathy with a PT of 41 and an INR of 3.96. He was seen by Urology. The urology was able to inflate his prosthetic ureteral sphincter and placed a Ignacio catheter. He has small amount of urine output. The patient was also seen by Cardiology. He has a poor ejection fraction of 15% to 20%. PHYSICAL EXAMINATION: VITAL SIGNS: The patient is afebrile. His blood pressure is 80/65 on Levophed at 5 mcg. The saturation is 100% on 2 L. HEENT: Shows no facial swelling or erythema. CARDIAC: Reveals a regular rate and rhythm with distant heart sounds. There are decreased breath sounds at bases. There is no wheezing. ABDOMEN: Soft, nontender. There is no rebound or guarding. EXTREMITIES: Show no leg edema or calf tenderness. LABORATORY DATA: BUN to creatinine ratio is 24:2.55, and the potassium is 5.4. Sodium is 135 and troponin is 7.088. White blood cell count is 9, and hemoglobin is 11.5. The platelet count is 94. Renal ultrasound shows no hydronephrosis. IMPRESSION: 1. Acute on chronic systolic congestive heart failure. 2. Cardiogenic shock. 3. Acute renal failure. 4. Acute urinary retention. 5. Nontransmural myocardial infarction. 6. Hyperkalemia. PLAN: 1. Continue Ignacio drainage now that the catheter is in place. 2. Monitor renal function. 3. Wean pressors as tolerated. 4. Continue antibiotics until culture results are back. 5. Diuresis as tolerated. 6. Case discussed with the patient, , Nursing, Internal Medicine, Cardiology, Urology. 7. Greater than 35 minutes in direct critical care time separate from any procedures performed. MD JANNET Rubin/GULSHAN /[id number]
[2019-04-20 16:30] LABS: CREATINE KINASE MB 22.2 ng/mL (0-5.0)
--- NOTE | 2019-04-20 17:34 | Consultation ---
DATE OF CONSULTATION: 04/20/2019 Cardiac Consultation REASON FOR CONSULTATION: 1. Non-ST elevation myocardial infarction. 2. Ischemic cardiomyopathy with congestive heart failure. 3. Chronic renal insufficiency. 4. Hyperkalemia. 5. Acute tubular necrosis. HISTORY OF PRESENT ILLNESS: An 84-year-old gentleman who had coronary artery bypass surgery in 1997. At that time, he had four bypasses. He is also known to have long-standing history of congestive heart failure dated almost to that time. The patient had defibrillator placement and status post generator change already. His other problem is chronic atrial fibrillation as well as seizure disorder. He does have also history of complex AVR repair [place] [address] Miranda. The patient for long time followed by Dr. Sterling. He [facility] He is now followed by the lime filter operator in Dr. Sterling group [facility]. The patient for the last 2 days is unable to pass urine. Of note, the patient had major prostate surgery, radical prostatectomy in 2005 and subsequently had sphincter placement for incontinence so for the last 2-3 days, he was unable to pee. The patient's condition is deteriorating. He is becoming lethargic, obtunded, hypotensive, and very ill. He came to the emergency room. He was having heart pacing. His lactic acid is elevated. His troponin at 7.1 was MB 24 and normal CK at 179. His BNP was 3500. The patient admitted to intensive care unit. He was given norepinephrine and he was given another treatment. His INR was 3.96 although the patient not taking warfarin, he is only on Eliquis 2.5 mg twice a day. He is feeling very weak, lethargic, obtunded, dizzy, almost going to pass out. Two days prior to this illness, he had abdominal pain. He thought it was indigestion. In summary, the patient's symptoms are class IV heart failure that episode of abdominal pain and he does have orthopnea, but no paroxysmal nocturnal dyspnea. He is having cough. He is having nausea and vomiting. He is having a very distended bladder and he is very uncomfortable. REVIEW OF SYSTEMS: GENERAL: Subjective fevers, failure to thrive. HEENT: Weakness and dizziness. PULMONARY AND CARDIAC: Class IV heart failure like symptoms in addition to cough and difficulty breathing and this episode of epigastric pain. GASTROINTESTINAL: Poor appetite, severe constipation, which is chronic. The patient needs to take strong laxative at least once a week. He is feeling nauseated and he is feeling he is going to vomit. GENITOURINARY: The patient unable to pass urine for the last two days. MUSCULOSKELETAL: Generalized weakness. NEUROLOGY: Tendency to fall, muscle wasting, and imbalanced gait. There is history of seizure activity. HEMATOLOGY: Easy bruising, but no bleeding. ENDOCRINE: The patient is not diabetic. HOME MEDICATIONS: Include: 1. Lipitor 20 mg a day. 2. Coreg 6.25 mg b.i.d. 3. Digoxin 0.125 mg daily. 4. Lasix 40 mg twice a day. 5. Levothyroxine 25 mcg a day. 6. Eliquis 2.5 mg twice a day. 7. Calcium carbonate. 8. Vitamin D3. 9. Keppra 250 mg twice a day. 10. Eliquis 2.5 mg twice a day. ALLERGIES: NONE. PAST MEDICAL HISTORY: 1. Coronary artery disease, status post coronary artery bypass surgery in 1997 with four bypasses, ALFRED to LAD and three vein graft to RCA and two OM. 2. Chronic left ventricular dysfunction status post ICD placement and the first generator change done. 3. Aortic aneurysm, status post complex EVAR in 2011 and it needs to be done twice because " renal artery" and he had leak. 4. Hypertension. 5. Advanced congestive heart failure. 6. Radical prostatectomy in 2005. 7. Bladder sphincter placement for incontinence. 8. Chronic atrial fibrillation. 9. Hyperlipidemia. 10. Hypercholesterolemia. 11. Seizure disorder. 12. Chronic renal insufficiency. 13. History of skin cancer status post major surgery. 14. 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 15. Chronic renal insufficiency question baseline creatinine. 16. Debility. 17. Tendency to fall. 18. Hypothyroidism. FAMILY HISTORY: Noncontributory. PHYSICAL EXAMINATION: GENERAL: Acutely ill, obtunded, lethargic gentleman. VITAL SIGNS: Height of 5 feet 9 inches, weight of 145 pounds, blood pressure 80/60, heart rate of the pacemaker rate at 70, respiratory rate of 26, and temperature of 98 Fahrenheit. HEENT: Remarkable for the evidence of prior face and neck surgery on the right side. CHEST: Bilateral crackles. HEART: ICD noted in place. Normal first and second heart sound. There is a 3rd heart sound and soft ejection systolic murmur. ABDOMEN: Soft. The liver edge is palpable. The bladder seems to be distended. Bowel sounds are sluggish. EXTREMITIES: No edema. No signs of DVT, but there is muscle wasting. NEUROLOGIC: Able to move his extremities, but he does have muscle loss and weakness. LABORATORY DATA: Sodium of 135, potassium of 5.4, BUN of 49, and creatinine of 2.6. White blood cell count of 9000, hemoglobin of 11.5, hematocrit 35%, and platelet count of 94,000. INR of 3.96. AST is elevated at 65. The total bilirubin at 4.1. BNP of 3500. CK 179, MB 24, troponin 7.1. Two other CK almost similar. Chest x-ray, cardiomegaly, smoker, mild pulmonary congestion. EKG, atrial fibrillation with pacemaker activities. IMPRESSION AND PLAN: 1. Obstructive uropathy leading to worsening baseline renal insufficiency. 2. Electrolyte imbalance with hyperkalemia. 3. Atrial fibrillation. 4. Dilated ischemic cardiomyopathy, status post coronary artery bypass surgery. 5. ICD and pacemaker dependency seems to be. 6. Prostate cancer status post radical prostatectomy and sphincter placement. 7. Major skin cancer status post surgery. 8. Thyroid disease. 9. Debility. 10. Elevation of bilirubin and INR out of proportion of the degree of Eliquis treatment. 11. Lactic acidosis. 12. Possible early sepsis. 13. Severe hypotension on epinephrine. Cardiacwise, we had lengthy discussion with the patient and his family and his . Treatment will be very conservative. We discussed also DNR status and he will be no intubation unless if it is needed to relieve his obstructive uropathy. Definitely, we are going to stop Eliquis and definitely we are going to stop his Coreg and we will hold on his diuresis till his obstructive uropathy is improved regarding his myocardial infarction. It will be medical therapy because of his comorbid condition and known severe left ventricular dysfunction and other comorbid condition. It was very lengthy visit in fact we spent almost 100 minutes answering the patient and his family questions and answered. We will follow this very sick patient with you. Prognosis is very guarded. MD STEPHY Flynn/GULSHAN /[id number]
[2019-04-20] MEDS: LEVETIRACETAM 500 MG TAB PO SCH (18:06)
[2019-04-20] MEDS: APIXAB 2.5 MG TABLET PO SCH (18:06)
--- NOTE | 2019-04-20 18:06 | NUR ---
Dr. Iqbal and Dr. Toledo spoke with the family about the patients status and the family decided to not have a central line placed and for the patient to be comfort care.
--- NOTE | 2019-04-20 19:00 | NUR ---
Bedside report received from Corbin Verma RN. Pt is not comfort/palliative care only per MDs and family request. Pt has hospice consult for tomorrow morning.
[2019-04-20] MEDS ORDERED: ATORVASTATIN 20 MG TAB PO SCH (21:00)
--- NOTE | 2019-04-20 23:00 | NUR ---
Pt is have periods of rapid breathing followed by apneic pauses lasting 45-90 seconds.
--- NOTE | 2019-04-20 23:36 | Consultation ---
DATE OF CONSULTATION: 04/20/2019 REASON FOR CONSULTATION: Acute kidney injury and hyperkalemia. HISTORY OF PRESENT ILLNESS: The patient is an 84-year-old male with past medical history of cardiomyopathy, coronary artery disease, status post AICD, prostate cancer, skin cancer, and thyroid disease, ejection fraction of 20% to 25%, was admitted with progressively getting weaker and difficulty urinating. The patient has a Ignacio catheter placed by Urology. The patient's blood pressure was low and was on Levophed overnight. The patient's family refusing central line, so Levophed is being off. Creatinine on admission was 2.69, this morning it is at 2.5. Potassium was 5.7, that came down to 5.4 after medical management. The patient's BNP is 3551. PAST MEDICAL HISTORY: As above. PAST SURGICAL HISTORY: Cardiac stent placement, replacement of urinary sphincter after treatment of prostate cancer. SOCIAL HISTORY: Lives at home with family. ALLERGIES: NO KNOWN DRUG ALLERGIES. MEDICATIONS: At home, the patient was on Lasix, Aldactone, aspirin, atorvastatin, calcium carbonate, carvedilol, digoxin, Keppra, levothyroxine, Eliquis, multivitamin. REVIEW OF SYSTEMS: GENERAL: Positive for fatigue. No fever, no chills. HEENT: No headache. No blurry vision. NECK: No dysphagia. CARDIOVASCULAR: No chest pain or PND. No orthopnea. RESPIRATORY: Positive for shortness of breath. Positive for dyspnea on exertion. No cough or hemoptysis. GI: No nausea, vomiting, diarrhea, constipation, hematemesis, or melena. MUSCULOSKELETAL: Positive ankle swelling. NEUROLOGIC: No numbness or tingling, but has generalized weakness. SKIN: No new rash. PHYSICAL EXAMINATION: VITAL SIGNS: Blood pressure 72/57, pulse of 79, respirations are 23, 99% on 2 L nasal cannula. GENERAL: Awake and alert, not in apparent distress. HEENT: PERRLA. Extraocular muscles are intact. NECK: No elevated JVD. HEART: S1, S2. LUNGS: Decreased breath sounds at the bases. ABDOMEN: Soft. Bowel sounds positive. EXTREMITIES: 1 mm edema. NEUROLOGIC: No focal deficits. SKIN: No new rash. LABORATORY DATA: Sodium 135, potassium 5.4, chloride 101, CO2 of 22, BUN 49, creatinine 2.55, glucose is 108, lactic acid is 3.3, calcium is 9.2. BNP 3551. Troponin 7.7, INR 3.96. White count 9.01, hemoglobin 11.5, platelet count is 94. Renal ultrasound, no hydronephrosis. Gallbladder thickening, small volume ascites. Right kidney 11 cm, left kidney 8.8 cm. Chest x-ray, cardiomegaly, mild pulmonary vascular congestion. ASSESSMENT AND PLAN: 1. Acute kidney injury, likely acute tubular necrosis secondary to cardiorenal syndrome. Has a long discussion with the , granddaughter and daughter at bedside and also with Dr. Toledo. Family and patient decided not to pursue any aggressive care. They are all agreeable with hospice and going home with hospice. 2. Hyperkalemia, secondary to Aldactone and acute kidney injury. Potassium is improving. Hold Aldactone for now. Lasix if blood pressure tolerates. 3. [id number] systolic congestive heart failure exacerbation, likely end-stage heart disease. Dr. Mosley is following. 4. Discussed with the family and Dr. Toledo at bedside. 5. The patient's overall prognosis is poor. 6. The patient is a hospice candidate. Thank you for the consult. MD SHANELL Cormier/GULSHAN /[id number]
--- NOTE | 2019-04-20 23:45 | NUR ---
Pt called daughters to come to the hospital due to decreasing BP and apneic episodes.
--- NOTE | 2019-04-21 00:23 | NUR ---
Pt family present at the bedside and the pt is now awake and talking. Pt is confused and forgetful but easily redirected.
[2019-04-21 05:37] VITALS: BP 75/61
[2019-04-21] MEDS: LEVOTHYROXINE SODIUM 25 MCG TABLET PO SCH (05:39)
[2019-04-21] MEDS: APIXAB 2.5 MG TABLET PO SCH (08:24)
[2019-04-21] MEDS: CALCIUM CARBONATE 500 MG CHEWABLE TABS PO SCH (08:24)
--- NOTE | 2019-04-21 08:29 | NUR ---
SPOKE WITH SEDA AND 2 DAUGHTERS BEDSIDE GAVE OPTIONS FOR HOSPICE COMPANIES, SIGNED CHOICE FOR [facility], FORWARDED INFORMATION TO COMPANY. FAMILY WANTS PT HOME BY NOON.
--- NOTE | 2019-04-21 08:54 | NUR ---
EDUCATED ABOUT IMM, SIGNED, FILED IN CHART, WITH COPY LEFT WITH FAMILY AT BEDSIDE.
[2019-04-21 09:00] VITALS: BP 75/61
[2019-04-21] MEDS: LEVETIRACETAM 500 MG TAB PO SCH (09:47)
--- NOTE | 2019-04-21 09:53 | NUR ---
family at bedside. [facility] at bedside. Vital signs and monitoring discontinued. patient swallowed Keppra without difficulty.
--- NOTE | 2019-04-21 10:02 | Progress Note ---
DATE: 04/21/2019 SUBJECTIVE: Ignacio catheter was placed yesterday. The patient does have some urine output. He continues to have low blood pressures, which are his baseline as a result of his severe cardiomyopathy. PHYSICAL EXAMINATION: VITAL SIGNS: The blood pressure is low in the 70-80/50-60 range. Saturation is 100% on 2 L. CARDIAC: Reveals a regular rate and rhythm with normal S1 and S2. LUNGS: Auscultation of lungs reveals a few crackles at the bases. ABDOMEN: Soft and nontender. There is no rebound or guarding. EXTREMITIES: Show no leg edema. IMPRESSION: 1. Acute kidney injury. 2. 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 3. Acute on chronic systolic congestive heart failure. 4. Severe systolic cardiomyopathy. 5. Coagulopathy. PLAN: 1. After discussion with myself, Nephrology, Cardiology and the nursing staff, the patient and family have opted for hospice care. 2. Continue Ignacio. 3. Continue cardiac medications. 4. Prognosis is poor. Tee Toledo MD [facility]/PHYLLISL /[id number]
--- NOTE | 2019-04-21 11:48 | NUR ---
patient family at bedside. vital signs and monitoring discontinued. family assisting patient to turn as needed. awaiting Hospice transfer
--- NOTE | 2019-04-21 12:31 | NUR ---
SPOKE WITH HOSPICE GOT THE OOH DNR, OBTAINED SIGNATURES. FILED ONE IN CHART AND PROVIDED NURSE WITH ONE FOR TRANSPORT, WAS TOLD DME IS BEING SET UP AND WILL GET NOTIFIED WHEN TRANSPORTATION IS BEING SET UP
--- NOTE | 2019-04-21 14:04 | NUR ---
patient attempted bm on bedpan. no result. jd care done
--- NOTE | 2019-04-21 14:30 | NUR ---
discontinued PIV to right ac. held pressure and applied 2x2 and paper tape
== END 2019-04-21 15:01 | disposition hospice, home (50) | DRG 280 ==
LOC: ER 21:24 → ERHOLD 23:34 → ICU 04-20 03:10
PROVIDERS: ADMIT Internal Medicine; ATTEND Internal Medicine
PROC: 30233K1 Transfusion of Nonautologous Frozen Plasma into Peripheral Vein, Percutaneous Approach (ICD-10-PCS; principal; 2019-04-20)
DX: R57.0 Cardiogenic shock (principal); I21.4 Non-ST elevation (NSTEMI) myocardial infarction; I50.23 Acute on chronic systolic (congestive) heart failure; N17.0 Acute kidney failure with tubular necrosis; N13.8 Other obstructive and reflux uropathy; I48.20 Chronic atrial fibrillation, unspecified; D68.9 Coagulation defect, unspecified; N17.9 Acute kidney failure, unspecified; R33.9 Retention of urine, unspecified; I11.0 Hypertensive heart disease with heart failure; I25.5 Ischemic cardiomyopathy; I25.10 Atherosclerotic heart disease of native coronary artery without angina pectoris; Z95.1 Presence of aortocoronary bypass graft; G40.909 Epilepsy, unspecified, not intractable, without status epilepticus; E78.00 Pure hypercholesterolemia, unspecified; T50.0X5A Adverse effect of mineralocorticoids and their antagonists, initial encounter; Z66 Do not resuscitate; E03.9 Hypothyroidism, unspecified
CPT/HCPCS: 36415; 51798; 71045; 76770; 80048; 80053; 81001; 82550; 82553; 83605; 83880; 84484; 85025; 85610; 85730; 86850; 86900; 87040; 87086; 93005; 93306; 99284; J0610; J0692; J1817; J7030; J7040; J7799; P9017